=== PATIENT | female | born 1935 | race Caucasian/White ===

== ENCOUNTER 2019-03-04 14:34 | Inpatient (IN) ==
[2019-03-04] MEDS ORDERED: ONDANSETRON 4 MG/2 ML VIAL ONE (14:58)
[2019-03-04] MEDS ORDERED: ADENOSINE 6 MG/2 ML VIAL IV STA (14:59)
[2019-03-04] MEDS ORDERED: ONDANSETRON 4 MG/2 ML VIAL IV STA (14:59)
[2019-03-04] MEDS ORDERED: ADENOSINE 6 MG/2 ML VIAL ONE (14:59)
[2019-03-04] MEDS ORDERED: METOPROLOL TARTRATE 5 MG/5 ML VIAL IV STA (15:18)
[2019-03-04 15:22] LABS: Basophils % 0.2 % (0.0-0.8); Hematocrit 25.2 VOL% (35.7-47.0); Hemoglobin 7.9 GM/DL (12.0-16.0); Immature Granulocytes % 0.6 %; Immature Granulocytes Absolute 0.08 #; Lymphocytes % 15.4 % (21.3-54.2); Mean Corpuscular HGB Conc 31.3 GM/DL (32-36); Mean Corpuscular Volume 94.4 FL (87-102); Mean Platelet Volume 9.3 FL (9.6-12.0); Monocytes % 5.5 % (1.7-12.7); Neutrophils % 78.3 % (38.7-73.9); Platelet Count 335 T/CUMM (130-400); Red Blood Count 2.67 MC/CUMM (3.8-5.5); Red Cell Distribution Width 15.9 % (9.3-17.3); White Blood Count 12.8 T/CUMM (4-12)
[2019-03-04 15:34] LABS: PT Patient Result 10.9 SECS (9.6-12.2); Partial Thromboplastin Time 21.6 SECS (20.8-36.0)
[2019-03-04 15:49] LABS: Alanine Aminotransferase 18 U/L (13-56); Albumin 3.6 G/DL (3.4-5.0); Alkaline Phosphatase 49 U/L (45-117); Aspartate Amino Transferase 18 U/L (0-37); Blood Urea Nitrogen 50 MG/DL (7-18); Calcium 8.7 MG/DL (8.5-10.1); Estimated Glom Filtration Rate 52 ML/MIN; Free T4 (Free Thyroxine) 1.43 NG/DL (0.76-1.46); Glucose 188 MG/DL (74-106); Osmolality,Calculated 294.5 MOS/KG (273-304); Thyroid Stimulating Hormone 0.306 uIU/ml (0.358-3.74); Total Protein 6.8 G/DL (6.4-8.3); Troponin I < 0.015 NG/ML (0.00-0.045)
[2019-03-04 16:20] LABS: Apearance,Urine CLEAR (Clear); Bilirubin,Urine Negative (Negative); Blood, Urine Negative (Negative); Glucose,Urine (UA) Negative (Negative); Ketones,Urine 5 mg/dL (Negative); Mucus,Urine Occasional /LPF (Occasional); Nitrite,Urine Negative (Negative); Protein,Urine Negative; RBC,Urine 1 /HPF (0-4); Squamous Epithelial Cell,Urine Occasional /HPF (0-10); Urine Color Yellow (Yellow); Urine Specific Gravity 1.018 (1.001-1.035); Urine Urobilinogen < 2.0 EU/DL (0.2-1.0); WBC,Urine 4 /HPF (0-6)
[2019-03-04] MEDS ORDERED: FLECAINIDE 100 MG TABLET PO ONE (16:25)
[2019-03-04 16:28] LABS: Barbiturates Screen,Urine Negative (Negative); Benzodiazepines Screen,Urine Negative (Negative); Cannabinoid Screen,Urine Negative (Negative); Opiate Screen,Urine Negative (Negative); Phencyclidine Screen,Urine Negative (Negative)
[2019-03-04] MEDS ORDERED: MORPHINE 4 MG/1 ML VIAL IV PRN (17:07)
[2019-03-04] MEDS ORDERED: ONDANSETRON 4 MG/2 ML VIAL IV PRN (17:07)
[2019-03-04] MEDS ORDERED: ENOXAPARIN 40 MG/0.4 ML SYRINGE SUBCUT SCH (17:30)
[2019-03-04] MEDS: SODIUM CHLORIDE 0.45% 1,000 ML IV SCH (19:04)
[2019-03-04] MEDS ORDERED: SODIUM CHLORIDE 0.9% 1,000 ML IV PRN (20:37)
[2019-03-04] MEDS ORDERED: POTASSIUM CHLORIDE 20 MEQ/15 ML UDCUP PO ONE (21:00)
[2019-03-04] MEDS: traMADol 50 MG TABLET PO SCH (21:12)
[2019-03-04] MEDS: VENLAFAXINE 75 MG TABLET PO SCH (21:12)
[2019-03-04] MEDS: COLESTIPOL 1 GM TABLET PO SCH (21:13)
[2019-03-04] MEDS: CALCIUM (CARBONATE) 600 MG TABLET PO SCH (21:14)
[2019-03-05 04:06] LABS: Basophils % 0.3 % (0.0-0.8); Eosinophils % 0.2 % (0.00-10.9); Immature Granulocytes % 0.6 %; Immature Granulocytes Absolute 0.07 #; Lymphocytes # 2.4 10*3/uL (1.4-4.0); Mean Corpuscular HGB Conc 31.1 GM/DL (32-36); Mean Corpuscular Volume 95.2 FL (87-102); Mean Platelet Volume 9.1 FL (9.6-12.0); Neutrophils % 68.9 % (38.7-73.9); Platelet Count 232 T/CUMM (130-400); Red Blood Count 1.86 MC/CUMM (3.8-5.5); Red Cell Distribution Width 15.9 % (9.3-17.3); White Blood Count 12.6 T/CUMM (4-12)
[2019-03-05 04:26] LABS: Calcium 7.8 MG/DL (8.5-10.1); Osmolality,Calculated 295.3 MOS/KG (273-304); Risk Ratio 2.42; VLDL CHOLESTEROL 24.8 MG/DL
[2019-03-05 04:28] LABS: Hemoglobin 5.5 GM/DL (12.0-16.0)
[2019-03-05 04:29] LABS: Hematocrit 17.7 VOL% (35.7-47.0)
[2019-03-05] MEDS ORDERED: SODIUM CHLORIDE 0.9% 1,000 ML IV PRN (04:54)
[2019-03-05] MEDS: SODIUM CHLORIDE 0.45% 1,000 ML IV SCH (05:30)
[2019-03-05] MEDS: LEVOTHYROXINE 50 MCG TABLET PO SCH (05:31)
[2019-03-05 06:09] LABS: Lymphocytes 27 % (20-55); Segmented Neutrophils 67 % (50-85); Total Cells Counted 100
[2019-03-05 06:10] LABS: Hypochromasia 1+; Microcytosis 1+; Ovalocytes Slight; Platelet Estimate Normal
[2019-03-05] MEDS ORDERED: LEVOTHYROXINE 75 MCG TABLET PO SCH (07:00)
[2019-03-05] MEDS: ASPIRIN EC 81 MG TABLET PO SCH (10:36)
[2019-03-05] MEDS: traMADol 50 MG TABLET PO SCH ×2 (10:36→21:55)
[2019-03-05] MEDS: CALCIUM (CARBONATE) 600 MG TABLET PO SCH ×2 (10:37→21:53)
[2019-03-05] MEDS: RALOXIFENE 60 MG TABLET PO SCH (10:37)
[2019-03-05] MEDS: COLESTIPOL 1 GM TABLET PO SCH ×2 (10:37→21:54)
[2019-03-05] MEDS: VENLAFAXINE 75 MG TABLET PO SCH ×2 (10:37→21:54)
[2019-03-05] MEDS: PANTOPRAZOLE 40 MG TABLET PO SCH (10:39)
[2019-03-05] MEDS: FLECAINIDE 50 MG TABLET PO SCH ×2 (12:09→23:10)
[2019-03-05 18:34] LABS: Hematocrit 30.6 VOL% (35.7-47.0)
[2019-03-05] MEDS: BISOPROLOL 5 MG TABLET PO SCH (21:53)
[2019-03-06 05:04] LABS: Basophils # 0.1 10*3/uL (0.0-0.2); Basophils % 0.4 % (0.0-0.8); Eosinophils # 0.1 10*3/uL (0.0-0.87); Hematocrit 26.8 VOL% (35.7-47.0); Hemoglobin 8.8 GM/DL (12.0-16.0); Immature Granulocytes % 0.7 %; Immature Granulocytes Absolute 0.08 #; Lymphocytes # 3.1 10*3/uL (1.4-4.0); Lymphocytes % 26.5 % (21.3-54.2); Mean Corpuscular HGB Conc 32.8 GM/DL (32-36); Mean Corpuscular Volume 88.2 FL (87-102); Mean Platelet Volume 9.3 FL (9.6-12.0); NRBC # 0.02 10*3/uL; Neutrophils % 59.4 % (38.7-73.9); Platelet Count 211 T/CUMM (130-400); Red Blood Count 3.04 MC/CUMM (3.8-5.5); Red Cell Distribution Width 16.3 % (9.3-17.3); White Blood Count 11.8 T/CUMM (4-12)
[2019-03-06 05:14] LABS: Calcium 8.2 MG/DL (8.5-10.1); Osmolality,Calculated 282.5 MOS/KG (273-304)
[2019-03-06] MEDS: LEVOTHYROXINE 50 MCG TABLET PO SCH (06:13)
[2019-03-06] MEDS: SODIUM CHLORIDE 0.45% 1,000 ML IV SCH (07:08)
[2019-03-06] MEDS: RALOXIFENE 60 MG TABLET PO SCH (08:38)
[2019-03-06] MEDS: BISOPROLOL 5 MG TABLET PO SCH (08:38)
[2019-03-06] MEDS: VENLAFAXINE 75 MG TABLET PO SCH ×2 (08:39→21:42)
[2019-03-06] MEDS: COLESTIPOL 1 GM TABLET PO SCH ×2 (08:39→21:42)
[2019-03-06] MEDS: FLECAINIDE 50 MG TABLET PO SCH ×2 (08:39→21:42)
[2019-03-06] MEDS: traMADol 50 MG TABLET PO SCH ×2 (08:39→21:43)
[2019-03-06] MEDS: ASPIRIN EC 81 MG TABLET PO SCH (08:39)
[2019-03-06] MEDS: CALCIUM (CARBONATE) 600 MG TABLET PO SCH ×2 (08:39→21:42)
[2019-03-06] MEDS: PANTOPRAZOLE 40 MG TABLET PO SCH (08:40)
[2019-03-06] MEDS ORDERED: DILTIAZEM 60 MG TABLET PO SCH (12:00)
[2019-03-06] MEDS ORDERED: DILTIAZEM 60 MG TABLET PO ONE (12:00)
[2019-03-06] MEDS: DILTIAZEM 30 MG TABLET PO SCH ×2 (16:07→21:42)
[2019-03-06] MEDS: BUDESONIDE 3 MG CAPSULE PO SCH ×2 (16:07→21:42)
[2019-03-07] MEDS: LEVOTHYROXINE 50 MCG TABLET PO SCH (06:00)
[2019-03-07] MEDS ORDERED: LACTATED RINGERS 1,000 ML IV SCH (08:00)
[2019-03-07] MEDS ORDERED: MULTIVITAMIN (CENTRUM) TABLET PO SCH (09:00)
[2019-03-07] MEDS ORDERED: PROPOFOL 200 MG/20 ML VIAL IV ONE (09:55)
[2019-03-07] MEDS ORDERED: LIDOCAINE 2% 5 ML VIAL ONE (09:55)
[2019-03-07] MEDS: traMADol 50 MG TABLET PO SCH (11:24)
[2019-03-07] MEDS: COLESTIPOL 1 GM TABLET PO SCH (11:24)
[2019-03-07] MEDS: ASPIRIN EC 81 MG TABLET PO SCH (11:24)
[2019-03-07] MEDS: DILTIAZEM 30 MG TABLET PO SCH ×2 (11:24→13:32)
[2019-03-07] MEDS: RALOXIFENE 60 MG TABLET PO SCH (11:24)
[2019-03-07] MEDS: VENLAFAXINE 75 MG TABLET PO SCH (11:24)
[2019-03-07] MEDS: CALCIUM (CARBONATE) 600 MG TABLET PO SCH (11:24)
[2019-03-07] MEDS: PANTOPRAZOLE 40 MG TABLET PO SCH (11:25)
[2019-03-07] MEDS: BISOPROLOL 5 MG TABLET PO SCH (11:25)
[2019-03-07] MEDS: BUDESONIDE 3 MG CAPSULE PO SCH ×2 (11:25→14:38)
[2019-03-07 12:07] VITALS: BP 126/66
[2019-03-07 12:25] LABS: Basophils % 0.4 % (0.0-0.8); Eosinophils % 0.4 % (0.00-10.9); Hematocrit 28.2 VOL% (35.7-47.0); Hemoglobin 9.1 GM/DL (12.0-16.0); Immature Granulocytes % 0.5 %; Immature Granulocytes Absolute 0.05 #; Lymphocytes # 1.8 10*3/uL (1.4-4.0); Lymphocytes % 17.9 % (21.3-54.2); Mean Corpuscular HGB Conc 32.3 GM/DL (32-36); Mean Corpuscular Volume 89.5 FL (87-102); Mean Platelet Volume 9.3 FL (9.6-12.0); Monocytes % 12.3 % (1.7-12.7); Neutrophils % 68.5 % (38.7-73.9); Platelet Count 218 T/CUMM (130-400); Red Blood Count 3.15 MC/CUMM (3.8-5.5); Red Cell Distribution Width 16.5 % (9.3-17.3); White Blood Count 10.2 T/CUMM (4-12)
[2019-03-07 12:32] LABS: Calcium 8.1 MG/DL (8.5-10.1); Osmolality,Calculated 274.7 MOS/KG (273-304)
[2019-03-07] MEDS ORDERED: POTASSIUM CHLORIDE 20 MEQ TABLET PO PRN (12:35)
[2019-03-07] MEDS: SODIUM CHLORIDE 0.45% 1,000 ML IV SCH ×2 (13:32→14:33)
[2019-03-07] MEDS: FLECAINIDE 50 MG TABLET PO SCH (14:31)
== END 2019-03-07 16:23 | disposition home health service (06) | DRG 308 ==
LOC: N.ED 14:34 → N.EDINP 14:34 → N.2W 18:19 → N.2E 03-05 17:24
PROVIDERS: ADMIT Internal Medicine Geriatric Medicine; ATTEND Internal Medicine Geriatric Medicine